=== PATIENT | male | born 1955 | race African-American/Black ===

== ENCOUNTER 2016-11-03 08:20 | Day surgery (SDC) | payer BC, MEDICARE ==
[~2016-11-03] VITALS: Ht 182.9 cm; Wt 113.4 kg
[~2016-11-03 08:20] MED LIST: BAYER CHEWABLE81 MG PO; KLOR-CON 1010 MEQ PO; LANTUS INSULIN10 ML SC; LASIX80 MG PO; LEVAQUIN250 MG PO; LEVEMIR100 U/M1 SC; LOTREL 10-40 M1 EACH PO; METOPROLOL TART50 MG PO; NOVOLIN R100 U/ML SQ; ROCALTROL0.25 MCG PO; SODIUM BICARBO650 MG PO; TOPROL XL25 MG PO
[2016-11-03 09:13] LABS: BASOPHILS 0.3 % (0.0-2.0); EOSINOPHILS 3.2 % (0-7); HEMATOCRIT 35.9 % (42.0-54.0); IMMATURE GRANULOCYTES 0.3 % (0-5); LYMPHOCYTES 21.1 % (15-50); MCH 29.5 pg (26.0-34.0); MCHC 33.4 g/dL (31.0-37.0); MCV 88.2 fL (80.0-100.0); MEAN PLATELET VOLUME 11.3 fL (7.4-10.4); MONOCYTES 5.5 % (2-11); NEUTROPHILS 69.6 % (40-80); PLATELET COUNT 174 10x3/uL (130-400); RBC 4.07 10x6/uL (4.20-6.10); RDW 12.9 % (11.5-14.5); WBC 10.5 10x3/uL (4.8-10.8)
[2016-11-03 09:26] LABS: ANION GAP 12.2 mmol/L (8-16); CALCIUM 9.1 mg/dL (8.5-10.1); CARBON DIOXIDE 29.4 mmol/L (21.0-32.0); CREATININE - SERUM 6.9 mg/dL (0.6-1.3); POTASSIUM - SERUM 3.6 mmol/L (3.5-5.1)
[2016-11-03 09:33] LABS: APTT 28.2 SECONDS (22.8-39.4); INR 1.02 (0.85-1.17); PROTIME 13.3 SECONDS (11.6-15.0)
[2016-11-03 10:54] VITALS: Ht 182.9 cm; Wt 113.4 kg
--- NOTE | 2016-11-03 15:37 | NUR ---
THE PATIENT COMPLAINED OF SOB ANESTHESIA STILL AT BEDSIDE. XOPENEX AND RACEMIC EPI UPDRAFT ALSO ADMIN PER ANESTHESIA. ANESTHESIA STILL HERE NOW ORDERING ABGS AND CHEST XRAY. THE PATIENT O2 SAT IS 98% ON ROOM AIR
--- NOTE | 2016-11-03 16:20 | NUR ---
DR KAPLAN AT BEDSIDE AND DISCHARGED THE PATIENT FROM
--- NOTE | 2016-11-03 16:20 | NUR ---
UPON DISCHARGE THE PATIENT DID NOT APPEAR TO BE IN ANY VISUAL DISTRESS AND THE PATIENT WISHED TO GO HOME
--- NOTE | 2016-11-03 17:40 | NUR ---
DISCHARGE INSTRUCTIONS REVIEWED WITH PATIENT AND SPOUSE. DISCHARGED HOME VIA WHEELCHAIR TO PRIVATE VEHICLE WITH SPOUSE
--- NOTE | 2016-11-18 10:18 | HP ---
PATIENT: BASILIO JIMENEZ MEDICAL RECORD: [id number] ACCOUNT: [id number] LOCATION:[facility] : 51 ADMISSION DATE: 11/03/16 HISTORY AND PHYSICAL EXAMINATION CHIEF COMPLAINT: I want to start a peritoneal dialysis. HISTORY OF PRESENT ILLNESS: The patient has had 2 prior peritoneal dialysis catheter placed. He is currently dialyzing via hemodialysis through a left arm fistula. The risks, possible complications and alternatives to the placement of a peritoneal dialysis catheter were explained to the patient. He elects to proceed. I specifically discussed with him the risk of bleeding requiring emergency reoperation, infection, as well as intestinal injury. ALLERGIES: No known drug allergies. HOME MEDICATIONS: Metoprolol, aspirin, Lasix, Levemir insulin, Lotrel as well as Novolin. SOCIAL HISTORY: Former smoker. PAST MEDICAL AND SURGICAL HISTORY: Insulin-dependent diabetes mellitus, end-stage renal, disease on dialysis 3 times a week, arthritis, PD catheter placements and then removals, AV fistula placement, amputation of the toes, and hypertension. REVIEW OF SYSTEMS: Negative for CVA or seizures. Negative for hepatitis. PHYSICAL EXAMINATION: GENERAL: The patient does not appear acutely ill. He does appear chronically ill. VITAL SIGNS: Reviewed. HEAD: External ears appear normal. EYES: Extraocular movements are intact. NECK: Trachea is midline. CHEST: No intercostal retractions. PULMONARY: Nonlabored, no stridor. ABDOMEN: Nontender. Multiple surgical scars were noted. IMPRESSION: End-stage renal disease, desires to resume peritoneal dialysis. PLAN: Plan will be laparoscopic peritoneal dialysis catheter placement. TRANSINT:[id number] Voice Confirmation ID: [id number] DOCUMENT ID: [id number] HISTORY AND PHYSICAL [id number] BASILIO JIMENEZ ROBERT MD at 1018 CC: DEANGELO BERMAN MD and EMANUEL LAYTON MD [id number] DICTATION DATE: 11/03/16 1510 LEAD INJECTION MOLD TECHNICIAN: 11/03/16 1652 [facility] 11/03/16 [facility] [address] [place] [address]
--- NOTE | 2016-11-18 10:18 | OP ---
PATIENT NAME: BASILIO JIMENEZ MEDICAL RECORD: [id number] :51 LOCATION:D.OPS ADMISSION DATE: SURGEON: DAVID BERTRAND MD DATE OF OPERATION: 11/03/2016 PREOPERATIVE DIAGNOSIS: End-stage renal disease with the desire to resume peritoneal dialysis. POSTOPERATIVE DIAGNOSES: End-stage renal disease with the desire to resume peritoneal dialysis and intra-abdominal adhesions. PROCEDURE: Laparoscopic peritoneal dialysis catheter placement. SURGEON: David Bertrand MD. BELT MEASURER: None. BLOOD LOSS: Minimal. ANESTHESIA: General. COMPLICATIONS: None. The adhesiolysis portion of this procedure took 11 minutes. OPERATIVE COURSE: The patient was conveyed to the operating room electively on 11/03/2016. General anesthesia was induced by the anesthesia staff. The abdomen was sterilely prepped and draped. A small skin incision was accomplished in the left upper quadrant. A Veress needle was inserted through the skin gama into the peritoneal cavity. CO2 insufflation was begun. Once a sufficient pneumoperitoneum had been achieved, a 5-mm trocar was inserted at this site. Under direct internal vision utilizing the television camera, I identified intraabdominal adhesions that were located in the suprapubic area as well as in the periumbilical area. This was going to interfere with drainage of the dialysate. It is for this reason I elected to take down the adhesions which were all omental adhesions. I inserted another 5-mm trocar. This was inserted in the left side of the abdomen. Utilizing the Harmonic scalpel, I took down the adhesions. All that I could identify were taken down. Meticulous hemostasis was achieved with the Harmonic scalpel. I then made an incision cephalad and to the left of the umbilicus. This was a transverse incision. I then angled a 12-mm trocar to the suprapubic area. I entered the peritoneal cavity at an angle. This was done with a 12-mm trocar. I then advanced a Rehoboth neck curl cath which was a left-sided Rehoboth neck curl cath. I then withdrew the 12-mm trocar. I ensured that both cuffs were in the subcutaneous tissues. I then tunneled the cut end of the [place]ob[place] neck curl cath out through the left lower quadrant. At no time was there any apparent kinking or twisting of the catheter. It flushed easily and also withdrew saline easily as well. The abdomen was desufflated. The 5-mm trocars were removed. The hub and the locking devices were attached to the Re[place]oboth neck curl cath. The skin incisions were closed with an interrupted intracuticular 3-0 Vicryls. Dermabond was then applied. The patient was then extubated and conveyed to post-anesthesia care unit where he was in stable condition. He will be dismissed home on hydrocodone for pain. OPERATIVE REPORT [id number] BASILIO JIMENEZ I will see him on a p.r.n. basis. TRANSINT:[id number] Voice Confirmation ID: [id number] DOCUMENT ID: [id number] DAVID BERTRAND MD at 1018 CC: DEANGELO BERMAN MD and EMANUEL LAYTON MD [id number] DICTATION DATE: 11/03/16 1506 VINYL INSTALLER: 11/03/16 2259 [facility] 11/03/[address] [address]
== END 2016-11-03 17:40 | disposition home or self-care (01) ==
LOC: D.OPS 08:20
PROVIDERS: Anesthesiology
DX: E11.22 Type 2 diabetes mellitus with diabetic chronic kidney disease (principal); I12.0 Hypertensive chronic kidney disease with stage 5 chronic kidney disease or end stage renal disease; N18.6 End stage renal disease; Z99.2 Dependence on renal dialysis; Z87.891 Personal history of nicotine dependence; Z79.4 Long term (current) use of insulin; Z79.82 Long term (current) use of aspirin; Z79.899 Other long term (current) drug therapy